=== PATIENT | male | born 1955 | race Caucasian/White ===

== ENCOUNTER 2018-02-16 18:47 | Emergency (ER) | payer MEDICARE, MEDICAID, OTHER ==
[2018-02-16] MEDS: FLUORESCEIN OPHTH 1 MG STRIP OS (21:00)
[2018-02-16] MEDS: NORCO 5/325MG TABLET (BULK FOR ED) PO (21:16)
[2018-02-16] MEDS: TOBRAMYCIN 0.3% OPHTH SOLN 5 ML OS (21:17)
== END 2018-02-16 21:21 | disposition home or self-care (01) ==
LOC: M ED 18:47
DX: S05.02XA Injury of conjunctiva and corneal abrasion without foreign body, left eye, initial encounter (principal); W26.8XXA Contact with other sharp object(s), not elsewhere classified, initial encounter; Y92.009 Unspecified place in unspecified non-institutional (private) residence as the place of occurrence of the external cause
CPT/HCPCS: 99283

== ENCOUNTER → 2023-02-05 | Outpatient (REF) | payer MEDICARE ==
[~2023-02-05] MED LIST: ASPI81TA86 PO; GABA-1171 PO; LIDO5DIS41 TD
[2023-02-05 12:25] LABS: BASO % 0.9 % (0.0-1.0); EOS # 0.1 10^3/uL (0.0-0.5); EOS % 3.3 % (0.0-3.0); HEMATOCRIT 40.4 % (42.0-52.0); HEMOGLOBIN 13.2 g/dl (13.5-17.5); LYMPH # 1.2 10^3/uL (1.5-5.0); LYMPH % 28.6 % (24.0-44.0); MEAN CORPUSCULAR HEMOGLOBIN 30.7 pg (27.0-33.0); MEAN CORPUSCULAR HGB CONC 32.7 g/dl (32.0-36.5); MONO # 0.8 10^3/uL (0.0-0.8); MONO % 19.3 % (2.0-8.0); NEUTROPHILS # 2.1 10^3/uL (1.5-8.5); NEUTROPHILS % 47.7 % (36.0-66.0); WHITE BLOOD COUNT 4.3 10^3/uL (4.0-10.0)
[2023-02-05 12:46] LABS: VANCOMYCIN LEVEL TROUGH 14.8 UG/ML (10.0-20.0)
[2023-02-05 12:48] LABS: ALKALINE PHOSPHATASE 71 U/L (46-116); ALT/SGPT 30 U/L (7.0-40); AST/SGOT 14 U/L (<34); BILIRUBIN,TOTAL 0.5 MG/DL (0.3-1.2); BLOOD UREA NITROGEN 13 MG/DL (9-23); CALCIUM LEVEL 9.1 MG/DL (8.3-10.6); CARBON DIOXIDE LEVEL 31 MMOL/L (20-31); CHLORIDE LEVEL 102 MMOL/L (98-107); GLOMERULAR FILTRATION RATE > 60.0 (>49); GLUCOSE, FASTING 104 MG/DL (74-106); POTASSIUM SERUM 4.4 MMOL/L (3.5-5.1); SODIUM LEVEL 139 MMOL/L (136-145); TOTAL PROTEIN 7.6 G/DL (5.7-8.2)
[2023-02-05 13:34] LABS: PLATELET COUNT, AUTOMATED 170 10^3/uL (150-450)
== END ==
LOC: M SHH 11:46
DX: T82.7XXD Infection and inflammatory reaction due to other cardiac and vascular devices, implants and grafts, subsequent encounter (principal); Y83.2 Surgical operation with anastomosis, bypass or graft as the cause of abnormal reaction of the patient, or of later complication, without mention of misadventure at the time of the procedure

== ENCOUNTER 2024-03-11 12:04 | Emergency (ER) | payer OTHER ==
[~2024-03-11] VITALS: Ht 180.3 cm; Wt 100.7 kg
[2024-03-11] MEDS ORDERED: ATOR1TAB21 PO (12:13)
[2024-03-11] MEDS ORDERED: [UNRECOGNIZED DRUG - CODE] (12:13)
[2024-03-11] MEDS ORDERED: METF500T13 PO (12:13)
[2024-03-11] MEDS ORDERED: IBUP200C25 PO (14:16)
[2024-03-11] MEDS ORDERED: ACET-907 PO (14:16)
[2024-03-11] MEDS ORDERED: ASPI81TA26 PO (14:16)
[2024-03-11] MEDS ORDERED: HOME MED LIST COMPLETE! XX SCH (14:20)
[2024-03-11 14:27] LABS: BASO % 0.3 % (0.0-1.0); EOS # 0.1 10^3/uL (0.0-0.5); EOS % 2.2 % (0.0-3.0); HEMATOCRIT 39.9 % (42.0-52.0); HEMOGLOBIN 13.2 g/dl (13.5-17.5); LYMPH # 1.6 10^3/uL (1.5-5.0); LYMPH % 25.6 % (24.0-44.0); MEAN CORPUSCULAR HEMOGLOBIN 32.4 pg (27.0-33.0); MEAN CORPUSCULAR HGB CONC 33.1 g/dl (32.0-36.5); MONO # 1.2 10^3/uL (0.0-0.8); MONO % 18.4 % (2.0-8.0); NEUTROPHILS # 3.4 10^3/uL (1.5-8.5); NEUTROPHILS % 53.3 % (36.0-66.0); PLATELET COUNT, AUTOMATED 220 10^3/uL (150-450); RED BLOOD COUNT 4.07 10^6/uL (4.30-6.10); WHITE BLOOD COUNT 6.3 10^3/uL (4.0-10.0)
[2024-03-11 14:30] LABS: INR 1.11; PARTIAL THROMBOPLASTIN TIME 29.5 SECONDS (24.8-34.2)
[2024-03-11 14:34] LABS: ERYTHROCYTE SEDIMENTATION RATE 47 mm/hr (0-20)
[2024-03-11 14:39] LABS: BLOOD UREA NITROGEN 11 MG/DL (9-23); CARBON DIOXIDE LEVEL 31 MMOL/L (20-31); CHLORIDE LEVEL 107 MMOL/L (98-107); CREATININE FOR GFR 0.77 MG/DL (0.70-1.30); GLOMERULAR FILTRATION RATE > 60.0 (>49); GLUCOSE, FASTING 85 MG/DL (74-106); POTASSIUM SERUM 4.8 MMOL/L (3.5-5.1); SODIUM LEVEL 140 MMOL/L (136-145)
[2024-03-11 16:12] VITALS: BP 159/75; TEMP 98.4; O2SAT 99
== END 2024-03-11 16:14 | disposition home or self-care (01) ==
LOC: M ED 12:04
DX: M79.651 Pain in right thigh (principal); E11.9 Type 2 diabetes mellitus without complications; M54.30 Sciatica, unspecified side; F17.200 Nicotine dependence, unspecified, uncomplicated; F10.10 Alcohol abuse, uncomplicated; M51.46 Schmorl's nodes, lumbar region; M48.07 Spinal stenosis, lumbosacral region; M16.11 Unilateral primary osteoarthritis, right hip; Z79.84 Long term (current) use of oral hypoglycemic drugs; Z79.82 Long term (current) use of aspirin; Z79.02 Long term (current) use of antithrombotics/antiplatelets; Z79.899 Other long term (current) drug therapy